=== PATIENT | female | born 1985 | race Caucasian/White ===

== ENCOUNTER 2018-11-29 13:10 | Outpatient (CLI) | payer MEDICAID ==
[~2018-11-29] VITALS: Ht 157.5 cm; Wt 76.2 kg
[2018-11-29 13:21] VITALS: Ht 157.5 cm; Wt 76.2 kg
[2018-11-29 13:22] VITALS: BP 124/57
[2018-11-29] MEDS ORDERED: PREN1TAB71 PO (13:24)
--- NOTE | 2018-11-29 15:20 | PN ---
Triage Information Date/Time Reason for visit: GDM for NST BPP Weeks of Gestation 37+ /Para n/a Diabetes: gestational Diabetes management: diet controlled Hypertention: none Objective Vital Signs Date Temp Pulse Resp B/P (MAP) Pulse Ox O2 O2 Flow FiO2 Time Delivery Rate 11/29/18 99.3 124/57 Room Air 13:22 (79) Heart Rate: 140's Contractions: 6-10 Minutes Apart Disposition: Discharge Assessment/Plan BPP 06/22 CX closed Discharged with precautions Questions answered Follow up with provider CHEMO RANDALL M.D. Nov 29, 2018 15:20
== END 2018-11-29 15:00 | disposition home or self-care (01) ==
LOC: OBT 13:10 → L-D 13:11 → OBT 15:00
PROVIDERS: ATTEND Obstetrics & Gynecology
DX: O24.410 Gestational diabetes mellitus in pregnancy, diet controlled (principal); Z3A.37 37 weeks gestation of pregnancy
CPT/HCPCS: 76818; Z7500; G0463

== ENCOUNTER 2018-12-06 08:24 | Inpatient (IN) | payer MEDICAID ==
[~2018-12-06] VITALS: Ht 157.5 cm; Wt 69.8 kg
[~2018-12-06 08:24] MED LIST: OXYTOCIN 30 UNITS/LR 500 ML BAG IV ONE; PREN1TAB71 PO
[2018-12-06] MEDS ORDERED: OXYTOCIN 30 UNITS/LR 500 ML IV PRN ×2 (09:00→17:30)
[2018-12-06] MEDS ORDERED: MISOPROSTOL 200 MCG TAB PR PRN ×2 (09:00→17:30)
[2018-12-06] MEDS ORDERED: METHYLERGONOVINE 0.2 MG INJ IM PRN ×2 (09:00→17:30)
[2018-12-06] MEDS ORDERED: CARBOPROST 250 MCG INJ IM PRN ×2 (09:00→17:30)
[2018-12-06 09:09] VITALS: Ht 157.5 cm; Wt 69.8 kg
[2018-12-06] MEDS: LACTATED RINGER'S 1,000 ML IV SCH ×2 (09:48→11:22)
[2018-12-06] MEDS ORDERED: CEFAZOLIN 2 GM/50 ML (PMX) 50 ML IVPB SCH (10:00)
[2018-12-06] MEDS ORDERED: AZITHROMYCIN 500MG/NS (PMX) 250 ML IV SCH (10:30)
--- NOTE | 2018-12-06 12:03 | HP ---
Date/Time of Note Date/Time of Note DATE: 12/06/18 TIME: 11:59 OB - History Hx of Present Chief Complaint: insulin dependent diabetic with previous c/s feeling uterine ctxs Care: Good Care Ultrasounds: Normal mid trimester US Obstetrical Complications: Gestational Diabetes Medical Complications: None Past Family/Social History * Past Medical, Surgical, Family and Obstetric Histories reviewed from chart. OB Admission Exam Physical Exam HEENT: WNL Heart: Rhythm Normal Lungs: Clear, Equal Abdomen: WNL Extremities: Normal Reflexes: Normal Cervical Dilatation: 1cm Effacement: 25% Station: -3 Membranes: Intact Heart Rate: 130's Accelerations: Accelerations Present Decelerations: No Decelerations Varibility: Moderate Contractions on Admission: 6-10 Minutes Apart Intensity: Moderate Last 72 hours Lab Results CBC & BMP 12/06/18 09:20 OB Assessment/Plan Reason for admission: active labor, other (GDM on insulin) Plan: Section TONIA KIRKPATRICK MD Dec 06, 2018 12:03
--- NOTE | 2018-12-06 12:14 | PREAC ---
Date/Time of Note Date/Time of Note DATE: 12/06/18 TIME: 12:12 Anesthesia Eval and Record Evaluation Time Pre-Procedure Interview DATE: 12/06/18 TIME: 12:12 Age 33 Sex female NPO: 8 hrs Preoperative diagnosis IUP Planned procedure Repear Csection Past Medical History Past Medical History: Includes Endo: Diabetes GI: Obesity Surgery & Anesthesia Issues No known issue Meds Anticoagulation: No Beta Boone within 24 hr: No Reason Beta Boone not given: Pt. not on B-Boone Reported Medications Vit No.130/Iron/FA ( Tablet) 1 Each Tablet, 1 EACH PO 11/29/18 Current Medications Lactated Ringer's 1,000 ml @ 125 mls/hr Q8H IV Last administered on 12/06/18at 11:22; Admin Dose 125 MLS/HR; Start 12/06/18 at 08:37 Cefazolin Sodium/ Dextrose 50 ml @ 100 mls/hr ONCE IVPB ; Start 12/06/18 at 10:00 Oxytocin/Lactated Ringer's 500 ml @ 125 mls/hr POST IV ; Start 12/06/18 at 09:00 Oxytocin/Lactated Ringer's 500 ml @ 0 mls/hr ONCE PRN IV .VAGINAL BLEEDING; Start 12/06/18 at 09:00 Methylergonovine Maleate (Methergine) 0.2 mg ONCE PRN IM .VAGINAL BLEEDING; Start 12/06/18 at 09:00 Carboprost Tromethamine (Hemabate) 250 mcg ONCE PRN IM .VAGINAL BLEEDING; Start 12/06/18 at 09:00 Misoprostol (Cytotec) 1,000 mcg ONCE PRN NE .VAGINAL BLEEDING; Start 12/06/18 at 09:00 Azithromycin 250 ml @ 250 mls/hr ONCE IV Last administered on 12/06/18at 11:22; Admin Dose 250 MLS/HR; Start 12/06/18 at 10:30 Meds reviewed: Yes Allergies Coded Allergies: No Known Allergy (Unverified , 12/06/18) Allergies Reviewed: Yes Labs/Studies Labs Reviewed: Reviewed by anesthesiologist Result Diagram: 12/06/1820 12/06/18 0920 Laboratory Tests 12/06/18 09:20 Blood Bank Test 12/06/18 09:20 Antibody Screen NEGATIVE Blood Type O POSITIVE Rh Immune Globulin Candidate NO test: Positive Studies: ECG Pre-procedure Exam Last vitals BP:110/55, P:72, Spo2:100%, T:98,8 Airway: Adequate mouth opening, Adequate thyromental dist Mallampati: Mallampati II Teeth: Normal Lung: Normal Heart: Normal ASA Physical Status ASA physical status: 2 Emergency: None Planned Anesthetic Neuraxial: Spinal Planned Pain Management Sub-arachniod narcotics, Parenteral pain med Pre-operative Attestations Prior to commencing anesthesia and surgery, the patient was re-evaluated, there was verification of: *The patient's identity *The results of appropriate recent lab work and preoperative vital signs *The above evaluation not changing prior to induction *Anesthetic plan, risk benefits, alternative and complications discussed with patient/family; questions answered; patient/family understands, accepts and wishes to proceed. AMBROCIO PENA MD Dec 06, 2018 12:14
[2018-12-06] MEDS ORDERED: morphine SULFATE/PF (10 MG/10 ML) INJ ONE (12:15)
[2018-12-06] MEDS ORDERED: ONDANSETRON 4 MG INJ ONE (12:15)
[2018-12-06] MEDS ORDERED: OXYTOCIN 10 UNIT INJ ONE (12:15)
[2018-12-06] MEDS ORDERED: PHENYLephrine 10 MG INJ ONE (12:28)
--- NOTE | 2018-12-06 12:54 | OPR ---
Operative Report Planned Procedure Procedure date Dec 06, 2018 Procedure(s) repeat c/s in labor , breech, diabetic on insulin Performed by see signature line Community Board Member: MARCOS LEWIS MD Pre-procedure diagnosis repeat c/s in labor , breech , diabetic on insulin [id number] Anesthesia Type: [id number] spinal Post-Procedure Post-procedure diagnosis same as pre op Findings Live Baby [], Apgars [] and [], weight [], position [], [] presentation []cord. Estimated Blood Loss: 600 - 700 mls Specimen(s) none Grafts/Implant(s) none Complication(s) none Procedure Description Under satisfactory spinal [] anesthesia, the patient was prepped and draped and placed in a supine position, tilted to the left. Pfannenstiel incision was made, carried through the subcutaneous tissue. Bleeders brought under control with electrocautery. Fascia incised to the length of the incision. Rectus muscles from the fascia, divided midline. Peritoneum exposed, entered through a transverse incision. Exploration of abdomen revealed gravid uterus. Bladder flap was developed. Transverse incision was made in the lower segment of the uterus. Amniotic sac ruptured. [clear] amniotic fluid noted.Delivered in jl breech presentation [] Nasal oropharyngeal suction was performed. The baby was handed to the team for immediate attention. The placenta was delivered manually intact. Uterine cavity was cleaned with wet sponge and drainage established. Uterus closed in 2 layers using one monocryl [] in continuous fashion. Peritoneal cavity irrigated with warm saline. Sponge, needle and instrument count reported to be correct. Abdominal peritoneum closed with [] continuously. Rectus muscle approximated with one monocryl[]. Fascia closed with one monocryl [], and skin closed with tres. Estimated blood loss 700[]mL. TONIA KIRKPATRICK MD Dec 06, 2018 12:54
--- NOTE | 2018-12-06 13:09 | PAC ---
Date/Time of Note Date/Time of Note DATE: 12/06/18 TIME: 13:08 Post-Anesthesia Notes Post-Anesthesia Note Activity: WNL Respiratory function: WNL Cardiovascular function: WNL Mental status: Baseline Pain reasonably controlled: Yes Hydration appropriate: Yes Nausea/Vomiting absent: Yes Comments BP:112/56, P:78, Spo2:100%, T:98,8 AMBROCIO PENA MD Dec 06, 2018 13:09
[2018-12-06] MEDS ORDERED: DIPHENHYDRAMINE 50 MG INJ IV PRN (13:30)
[2018-12-06] MEDS ORDERED: morphine 2 MG INJ IV PRN (13:30)
[2018-12-06] MEDS ORDERED: NALOXONE (0.4 MG/ML) INJ IV PRN (13:30)
[2018-12-06] MEDS: OXYTOCIN 30 UNITS/LR 500 ML IV SCH ×2 (13:40→15:31)
[2018-12-06] MEDS ORDERED: MEPERIDINE 25 MG INJ IV ONE (14:00)
[2018-12-06] MEDS: KETOROLAC 30 MG INJ IV PRN ×2 (15:37→21:41)
[2018-12-06] MEDS ORDERED: LACTATED RINGER'S 1,000 ML IV SCH (17:22)
[2018-12-06] MEDS ORDERED: OXYTOCIN 30 UNITS/LR 500 ML IV SCH (17:22)
[2018-12-06] MEDS ORDERED: NACL 0.9% 3 ML SYG IV SCH (17:30)
[2018-12-06] MEDS ORDERED: NA PHOSPHATE/BIPHOS 133 ML ENEMA PR PRN (17:30)
[2018-12-06] MEDS ORDERED: HYDROCODONE/APAP (5/325) TAB PO PRN (17:30)
[2018-12-06] MEDS ORDERED: LANOLIN HPA 1 PKT TOP PRN (17:30)
[2018-12-06 17:40] VITALS: BP 108/61; PULSE 58; RESP 19
[2018-12-06 18:40] VITALS: BP 110/58; PULSE 62
[2018-12-06 19:45] VITALS: BP 109/60; PULSE 55; RESP 18
[2018-12-07] VITALS: BP 108/72; PULSE 56; RESP 18
[2018-12-07] MEDS: LACTATED RINGER'S 1,000 ML IV SCH ×2 (03:20→11:30)
[2018-12-07 04:00] VITALS: BP 110/70; PULSE 60; RESP 18
[2018-12-07 08:50] VITALS: BP 98/56; PULSE 87; RESP 18
[2018-12-07] MEDS: KETOROLAC 30 MG INJ IV PRN (11:54)
[2018-12-07 12:00] VITALS: BP 104/55; PULSE 87; RESP 16
[2018-12-07] MEDS: IBUPROFEN 800 MG TAB PO SCH ×2 (14:00→22:31)
[2018-12-07 16:00] VITALS: BP 113/68; PULSE 68; RESP 16
--- NOTE | 2018-12-07 16:05 | QN ---
Documentation Comment doing well vss abd soft oob d/c lozoya and IV TONIA KIRKPATRICK MD Dec 07, 2018 16:05
[2018-12-07 21:10] VITALS: BP 109/53; PULSE 72; RESP 18
[2018-12-08 04:07] VITALS: BP 92/50; PULSE 60; RESP 18
[2018-12-08] MEDS: IBUPROFEN 800 MG TAB PO SCH ×3 (05:36→21:38)
[2018-12-08 08:00] VITALS: BP 92/52; RESP 18
--- NOTE | 2018-12-08 11:14 | QN ---
Documentation Comment doing well vss abd soft incision c&d TONIA KIRKPATRICK MD Dec 08, 2018 11:14
--- NOTE | 2018-12-08 11:15 | DS ---
Date/Time of Note Date/Time of Note DATE: 12/08/18 TIME: 11:15 Discharge Summary Admission/Discharge Info Admit Date/Time Dec 06, 2018 at 08:24 Discharge Date/Time Discharge Diagnosis term Patient Condition: Stable Hospital Course unremarkable Home Meds Reported Medications Vit No.130/Iron/FA ( Tablet) 1 Each Tablet, 1 EACH PO 11/29/18 Primary Care Provider Not On Staff Doctor TONIA KIRKPATRICK MD Dec 08, 2018 11:15
[2018-12-08 16:00] VITALS: BP 107/57; RESP 18
[2018-12-08 20:15] VITALS: BP 112/70; PULSE 56; RESP 18
[2018-12-09 04:06] VITALS: BP 106/61; PULSE 58; RESP 18
[2018-12-09] MEDS: IBUPROFEN 800 MG TAB PO SCH (05:35)
[2018-12-09 08:00] VITALS: BP 102/56; PULSE 54; RESP 18
[2018-12-09] MEDS ORDERED: MEASLES,MUMPS,RUBELLA VACCINE INJ SC* ONE (09:00)
[2018-12-09] MEDS ORDERED: DIPHTH/TET/ACEL PERTUSS (ADULT) 0.5 ML VIAL IM* ONE (09:00)
--- NOTE | 2018-12-10 12:48 | DELSUM ---
Delivery Summary A-C Datetime Report Generated by CPN: 12/10/2018 12:48 DELIVERY PERSONNEL [employer] Engineer: Sebunnya, Phoebe MATERNAL INFORMATION Delivery Anesthesia: Spinal Medications in Delivery: see anesthesia Delivery QBL (ml): 600 Placenta Cultured: No Other Maternal Complications: DIABETIC INSULIN DEPENDANT RN Comments: VALERIE ANNEMARIE RN LABOR SUMMARY EDC: 12/17/2018 00:00 No. Babies in Womb: 1 Attempted: No Labor Anesthesia: None LABOR INFORMATION Reason for Induction: Not Applicable Oxytocin: N/A Group B Beta Strep: Negative Antibiotics # of Doses: 2 Antibiotics Time of Last Dose: 12/06/2018 12:20 Steroids Given: None Reason Steroids Not Administered: Not Applicable MEMBRANES Membranes Rupture Method: Artificial Rupture of Membranes: 12/06/2018 12:37 Length of Rupture (hr): 0.00 Amniotic Fluid Color: Clear Amniotic Fluid Amount: Large Amniotic Fluid Odor: Normal STAGES OF LABOR Stage 3 hr: 0 Stage 3 min: 1 CSECTION DELIVERY Primary Indication: Repeat Elective CSection Urgency: Non Elective CSection Incidence: Repeat Labor: No Labor Elective: Nonelective CSection Incision: Lower Uterine Transverse BABY A INFORMATION Infant Delivery Date/Time: 12/06/2018 12:37 Method of Delivery: Born in Route : No : N/A Forceps: N/A Vacuum Extraction: N/A Shoulder Dystocia : N/A SHOULDER DYSTOCIA BABY A Infant Delivery Date/Time: 12/06/2018 12:37 PRESENTATION/POSITION BABY A Presentation: Breech Cephalic Presentation: N/A Vertex Position: na Breech Presentation: Blake PLACENTA INFORMATION BABY A Placenta Delivery Time : 12/06/2018 12:38 Placenta Method of Delivery: Manual Removal Placenta Status: Delivered SCORES BABY A Heart Rate 1 min: >100 bpm Resp Effort 1 min: Good Cry Reflex Irritability 1 min: Cough/Sneeze/Pulls Away Muscle Tone 1 min: Active Motion Color 1 min: Blue/Pale SCORE 1 MIN: 8 Heart Rate 5 min: >100 bpm Resp Effort 5 min: Good Cry Reflex Irritability 5 min: Cough/Sneeze/Pulls Away Muscle Tone 5 min: Active Motion Color 5 min: Body [place], Extremit Blue SCORE 5 MIN: 9 INFORMATION BABY A Gestational Age at Delivery: 38.3 Gestational Status: Early Term- 37- 38.6 Weeks Outcome : Liveborn Condition : Stable Sex: Female IDENTIFICATION/MEDS BABY A ID Band Number: [id number] ID Band Location: Right Leg; Left Arm Sensor Applied: Yes Sensor Number: [id number] Sensor Location : Cord Clamp Vitamin K Given : Not Given Erythromycin Given: Not Given WEIGHT/LENGTH BABY A Birthweight (gm): 4080 Infant Weight (lb): 9 Weight (oz): 0 Length (in): 21.00 Infant Length (cm): 53.34 CORD INFORMATION BABY A No. Cord Vessels: 3 Nuchal Cord : Around Neck x1, Loose Nuchal Cord- Other: 0 True Knot: 0 Cord Blood Taken: Yes Banking/Donate Info: NO Infant Suction: Mouth; Nose ASSESSMENT BABY A Complications: None Physical Findings at Delivery: Within Normal Limits Infant Respirations: Appears Normal Care By: TEMO SKINNER RN Transferred To: Remains with Mother
== END 2018-12-09 12:25 | disposition home or self-care (01) | DRG 788 ==
LOC: L-D 08:24 → PP1 17:19
PROVIDERS: ADMIT Obstetrics & Gynecology; ATTEND Obstetrics & Gynecology
PROC: 10D00Z1 Extraction of Products of Conception, Low, Open Approach (ICD-10-PCS; principal; 2018-12-06 15:30)
DX: O24.424 Gestational diabetes mellitus in childbirth, insulin controlled (principal); O34.211 Maternal care for low transverse scar from previous cesarean delivery; O32.1XX0 Maternal care for breech presentation, not applicable or unspecified; O99.214 Obesity complicating childbirth; E66.9 Obesity, unspecified; Z3A.38 38 weeks gestation of pregnancy; Z37.0 Single live birth
CPT/HCPCS: 82947; 82962; 85025; 85610; 85730; 86592; 86850; 86900; 86901; 87340; 88307; 99464; J0690; J1885; J2274; J2405; J2590; J7120